=== PATIENT | female | born 1945 | race Caucasian/White ===

== ENCOUNTER 2020-11-17 05:57 | Inpatient (IN) | payer OTHER ==
--- NOTE | 2020-11-05 12:17 | RAD REPORT ---
EXAM DESCRIPTION: RAD - Chest Pa And Lat (2 Views) - 11/05/2020 12:10 pm CLINICAL HISTORY: Pre Op COMPARISON: No comparisons FINDINGS: Lines: None. Lungs: No evidence of edema or pneumonia. Large lung volumes. Pleural: No significant pleural effusions or pneumothorax. Cardiac: Upper limits of normal in size. Annuloplasty changes at the aortic valve. Bones: No acute fractures. Sternotomy. Other: IMPRESSION: No acute cardiopulmonary disease.
[2020-11-05 13:03] LABS: Urine Appearance CLEAR (Clear); Urine Bilirubin NEGATIVE (Negative); Urine Blood TRACE (Negative); Urine Color YELLOW (Yellow); Urine Glucose NEGATIVE (Negative); Urine Protein NEGATIVE (Negative); Urine Urobilinogen 0.2 mg/dL (0.2-1.0)
[2020-11-05 13:08] LABS: Urine Microscopic Reflex ORDER UMIC
[2020-11-05 13:11] LABS: Absolute Lymphocytes (CBC) 1.1 K/uL (0.7-4.9); Basophils % 1.9 % (0-1.3); Hematocrit 44.2 % (36.0-45.0); Lymphocytes % 27.2 % (15.3-44.8); MPV 9.6 fL (7.6-11.3); RBC Red Blood Cell Count 4.59 M/uL (3.86-4.86)
[2020-11-05 13:15] LABS: Protime INR 1.08
[2020-11-05 13:15] LABS: Urine Bacteria <20 /HPF (<20)
[2020-11-05 13:40] LABS: Albumin 4.1 g/dL (3.4-5.0); Bilirubin Total 0.7 mg/dL (0.2-1.0); Potassium 4.2 mmol/L (3.5-5.1); Protein, Total 7.3 g/dL (6.4-8.2)
--- NOTE | 2020-11-09 18:19 | EKG ---
Test Date: 2020-11-05 Test Time: 11:23:08 Cementing Bulk Material Operator: KAREEM MEASUREMENT RESULTS: Intervals: Rate: 82 CT: QRSD: 86 QT: 390 QTc: 455 Tok: P: CT: QRS: 85 T: 46 INTERPRETIVE STATEMENTS: Atrial fibrillation Abnormal ECG No previous ECG available for comparison Electronically Signed On 11-09-20 18:07:03 CDT by Laureano Mccormick
--- NOTE | 2020-11-10 16:48 | EKG ---
Test Date: 2020-11-05 Test Time: 11:29:47 Electroneurodiagnostic Technologist: KAREEM MEASUREMENT RESULTS: Intervals: Rate: 79 HI: QRSD: 88 QT: 398 QTc: 456 Arnett: P: HI: QRS: 85 T: 34 INTERPRETIVE STATEMENTS: Atrial fibrillation Minimal voltage criteria for LVH, may be normal variant Abnormal ECG Compared to ECG 11/05/2020 11:23:08 Left ventricular hypertrophy now present Electronically Signed On 11-10-20 16:43:16 CDT by Laureano Mccormick
[2020-11-17] MEDS ORDERED: CELECOXIB 100 MG CAPSULE ONE (06:51)
[2020-11-17] MEDS ORDERED: GABAPENTIN 100 MG CAP ONE (06:52)
[2020-11-17] MEDS ORDERED: CEFAZOLIN 2 GM IN 0.9% NACL 2 GM/100 ML BAG ONE (06:52)
[2020-11-17] MEDS ORDERED: Ringers Lactate 1,000 ML IV ONE ×2 (06:52→08:39)
[2020-11-17] MEDS ORDERED: ACETAMINOPHEN 500 MG TAB ONE (06:52)
[2020-11-17] MEDS ORDERED: TRANEXAMIC ACID 1,000 MG in NA CHLORIDE 0.9% 50 ML IV SCH (07:15)
[2020-11-17] MEDS ORDERED: MIDAZOLAM HCL 2 MG/2 ML INJ ONE (07:24)
[2020-11-17] MEDS ORDERED: FENTANYL CITR 100 MCG/2 ML ONE (07:24)
[2020-11-17] MEDS ORDERED: LIDOCAINE 2% MPF 5 ML VIAL ONE (07:24)
[2020-11-17] MEDS ORDERED: propofoL 200 MG/20 ML VIAL IV ONE (07:24)
[2020-11-17] MEDS ORDERED: EPINEPHRINE/PF 1 MG/ML AMP ONE (07:30)
[2020-11-17] MEDS ORDERED: BUPIVACAINE 0.75% (PF) 2 ML SP ONE (07:30)
[2020-11-17] MEDS ORDERED: LIDOCAINE 1% MPF 2 ML AMPULE ONE (07:39)
[2020-11-17] MEDS ORDERED: EPHEDRINE SULF 50 MG/ML VIAL ONE (08:14)
[2020-11-17] MEDS ORDERED: ESMOLOL HCL 10 ML IV ONE (08:37)
[2020-11-17] MEDS ORDERED: Phenylephrine HCl 10 MG/ML 1 ML VIAL ONE (08:46)
[2020-11-17] MEDS ORDERED: ONDANSETRON 4 MG/2 ML VIAL IV PRN (09:31)
[2020-11-17] MEDS ORDERED: DOCUSATE NA 100 MG CAP PO PRN (09:31)
[2020-11-17] MEDS ORDERED: NALOXONE 0.4 MG/ML VIAL IV PRN (09:31)
[2020-11-17] MEDS ORDERED: MORPHINE/NS PCA 50 MG/50 ML PCA.SYRING IV PRN (09:31)
--- NOTE | 2020-11-17 09:31 | P.BOP ---
Preoperative diagnosis: left hip arthritis Postoperative diagnosis: same Primary procedure: left hip total hip arthoplasty Estimated blood loss: 100ccs Anesthesia: General Complications: None Transferred to: Recovery Room Condition: Good
[2020-11-17 10:04] LABS: Hematocrit 36.7 % (36.0-45.0)
[2020-11-17 11:05] VITALS: BMI 16.0
--- NOTE | 2020-11-17 12:40 | P.HP ---
Patient History Date of Service: 11/17/20 Allergies No Known Allergies Allergy (Verified 11/17/20 07:06) Home Medications: Albuterol Sulfate [Proair Respiclick] 90 mcg IH BID 11/05/20 Aspirin [Aspirin EC 81 MG] 81 mg PO DAILY 11/05/20 Biotin 1 mg PO DAILY 11/05/20 Ca Citrate/Mgox/Vit D3/B6/Min [Citracal Plus Tablet] 1 each PO DAILY 11/05/20 Cholecalciferol (Vitamin D3) [Vitamin D 5,000 Iu Cap] 5,000 unit PO DAILY 11/05/20 Meloxicam [Mobic] 7.5 mg PO DAILY 11/05/20 Potassium Cl [Klor-Con 8] 8 meq PO DAILY 11/05/20 Tramadol HCl/Acetaminophen [Ultracet Tablet] 1 each PO Q6HP PRN 11/05/20 Umeclidinium Brm/Vilanterol Tr [Anoro Ellipta 62.5-25 Mcg INH] 1 each IH DAILY 11/05/20 - Past Medical/Surgical History Has patient received pneumonia vaccine in the past: No Diabetic: No -: appendectomy - Social History Smoking Status: Current some day smoker Alcohol use: Yes CD- Drugs: No Caffeine use: Yes Place of Residence: Home Physical Examination - Vital Signs Temperature: 96.9 F Blood Pressure: 97/73 Pulse: 98 Respirations: 18 Pulse Ox (%): 95 - Studies Laboratory Data (last 24 hrs) 11/17/20 09:55: Hgb 12.5, Hct 36.7 D Assessment and Plan - Advance Directives Does patient have a Living Will: No Does patient have a Durable POA for Healthcare: Yes
--- NOTE | 2020-11-17 12:47 | P.CNS ---
Date of Consult: 11/17/20 Reason for Consult: Medical management Chief Complaint: Left Hip replacement History of Present Illness: Patient is a 75-year-old female with a past medical history significant for COPD, nicotine dependence, A. fib and osteoarthritis who was scheduled to have surgery with her orthopedic surgeon due to persistent left hip pain. Patient has a left hip replacement. Patient tolerated the procedure appropriately. [facility] was consulted for medical management. Patient currently denies any signs and symptoms of distress. Patient denies pain or any other symptoms. Symptoms are aggravated or relieved by nothing. Patient is currently resting in bed with abduction pillow in place. - Past Medical/Surgical History Diabetic: No -: Afib -: COPD -: appendectomy -: Right Hip repalcement - Social History Smoking Status: Current every day smoker Smoking therapy provided: Yes Alcohol use: Yes CD- Drugs: No Caffeine use: Yes Place of Residence: Home <Allyson Canales - Last Filed: 11/17/20 20:11> <Stan Collado - Last Filed: 11/18/20 06:08> Allergies No Known Allergies Allergy (Verified 11/17/20 07:06) Home Medications: Albuterol Sulfate [Proair Respiclick] 90 mcg IH BID 11/05/20 Aspirin [Aspirin EC 81 MG] 81 mg PO DAILY 11/05/20 Biotin 1 mg PO DAILY 11/05/20 Ca Citrate/Mgox/Vit D3/B6/Min [Citracal Plus Tablet] 1 each PO DAILY 11/05/20 Cholecalciferol (Vitamin D3) [Vitamin D 5,000 Iu Cap] 5,000 unit PO DAILY 11/05/20 Meloxicam [Mobic] 7.5 mg PO DAILY 11/05/20 Potassium Cl [Klor-Con 8] 8 meq PO DAILY 11/05/20 Tramadol HCl/Acetaminophen [Ultracet Tablet] 1 each PO Q6HP PRN 11/05/20 Umeclidinium Brm/Vilanterol Tr [Anoro Ellipta 62.5-25 Mcg INH] 1 each IH DAILY 11/05/20 Review of Systems General: Other, Unremarkable Eyes: Unremarkable ENT: Unremarkable Respiratory: Unremarkable Cardiovascular: Unremarkable Gastrointestinal: Unremarkable Genitourinary: Unremarkable Musculoskeletal: Other (Left hip pain ) Integumentary: Unremarkable Neurological: Unremarkable <Allyson Canales - Last Filed: 11/17/20 20:11> Physical Examination Temp Pulse Resp BP Pulse Ox 96.9 F 98 H 18 97/73 95 11/17/20 11:50 11/17/20 11:50 11/17/20 11:50 11/17/20 11:50 11/17/20 11:50 General: Alert, In no apparent distress, Oriented x3 HEENT: Atraumatic, PERRLA, Mucous membr. moist/pink, EOMI, Sclerae nonicteric Neck: Supple, 2+ carotid pulse no bruit, No LAD, Without JVD or thyroid abnormality Respiratory: Clear to auscultation bilaterally, Normal air movement Cardiovascular: Normal S1 S2, Irregular heart rate/rhythm Capillary refill: <2 Seconds Gastrointestinal: Normal bowel sounds, No tenderness Musculoskeletal: No tenderness Integumentary: No rashes Neurological: Normal gait, Normal speech, Normal tone, Normal affect Lymphatics: No axilla or inguinal lymphadenopathy External genitalia: Deferred Rectal: Deferred Laboratory Data (last 24 hrs) 11/17/20 09:55: Hgb 12.5, Hct 36.7 D <YunierannakamaljitAllyson montoya Chacho - Last Filed: 11/17/20 20:11> Temp Pulse Resp BP Pulse Ox 98.1 F 103 H 20 95/59 L 97 11/18/20 04:00 11/18/20 05:13 11/18/20 04:00 11/18/20 05:13 11/18/20 04:00 Laboratory Data (last 24 hrs) 11/18/20 05:18: WBC 4.70 D, Hgb 10.2 L, Hct 30.1 L, Plt Count 115 L 11/17/20 16:53: Hgb 11.8 L, Hct 35.1 L 11/17/20 09:55: Hgb 12.5, Hct 36.7 D <Stan Collado - Last Filed: 11/18/20 06:08> Conclusions/Impression: --Left hip pain. Status post left hip replacement. Surgery on board. Abducti on pillow in place. Fall precautions. PT eval and treat. Social service consulted as well. Will await further recommendation from surgeon. --Acute pain\osteoarthritis. We will manage pain with current pain medication regimen. --Atrial fibrillation. Patient newly diagnosed 1 week ago. Per surgery recommendation, patient will be placed on Lovenox subQ during this hospitalization and continue Eliquis at home on discharge. --COPD. Stable. Continue home medications. --Nicotine dependence. Patient counseled on tobacco cessation. Refuses nicotine patch. --CKD 2. Baseline functions unknown. We will continue to monitor renal functions. --DVT prophylaxis with Lovenox subQ I have had discussion about advanced directives with the patient during this hospital admission. Addressed code status and goals of care. Spent more than 30 minutes. Case discussed withpatient and nurse. The following document was completed using voice recognition software. This can produce heel reducer errors that can at times significantly distort words and phrases. Please interpret any aspect of the note that is nonsensical in light of this fact. Physician Review: Patient Assessed, Agree with Above Assessment and Plan Critical Care: No <Allyson Canales - Last Filed: 11/17/20 20:11> Conclusions/Impression: Patient seen/examined post-operatively on 11/17. Resting comfortably in bed, irregular rhythm, HR: 90s, breathing comfortably on room air. NAD. AOx3 agree with plan as noted above. PT consulted. patient lives at home with recently diagnosed with afib, started on Eliquis by her inside tester 1-2 weeks ago, denies any prescriptions for rate or rhythm control medication Time Spent Managing Pts care (In Minutes): 60 <Stan Collado - Last Filed: 11/18/20 06:08>
[2020-11-17] MEDS ORDERED: TRAMADOL 37.5mg/APAP 325mg PER TAB PO PRN (12:48)
[2020-11-17] MEDS: HYDROCODONE/APAP 7.5/325 MG TAB PO PRN (16:04)
[2020-11-17] MEDS: CEFAZOLIN 2 GM IN 0.9% NACL 2 GM/100 ML BAG IVPB SCH (16:42)
[2020-11-17 17:15] LABS: Hematocrit 35.1 % (36.0-45.0)
--- NOTE | 2020-11-17 17:56 | OP ---
Date of Procedure: 11/17/2020 Surgeon: Kaleb Wheeler MD Preoperative Diagnosis: Left severe hip arthritis. Postoperative Diagnosis: Left severe hip arthritis. Procedure: Left total hip arthroplasty using the [place] system. Estimated Blood Loss: 100 mL. Complications: There were no complications. Specimen: No pathology specimen sent. Indication For Operation: Ms. Vega is a 75-year-old female, who unfortunately has debilitating ramin n with the left hip. She was seen and examined in my office where she was found to have decreased ra nge of motion as well as pain related to her left hip, which was causing significant pain and problem s. She has had a previous right-sided hip done by me and risks, benefits, and alternatives to total hip arthroplasty have been discussed with the patient. She states she understands things as presente d and wished to proceed. Description Of Procedure: The patient was taken to the operating room and placed in supine position. General anesthesia was obtained by the staff. Following this, she was then rolled right side down with an axillary roll with bony prominences being checked by Anesthesia. She was in an appropriate p osition using hip positioners. After this, the left lower extremity was then prepped and draped in u sual sterile fashion for arthroplasty. This was followed by standard posterolateral incision and was taken down carefully through skin. Only meticulous hemostasis being maintained using Bovie electroca utery. This leads down to the fascia. A small stab wound was made in the fascia. It was brought up to near the tip of the greater trochanter where the gluteus deepthi muscles were encountered and the n curved gently backward. The sciatic nerve was palpated and actually visualized at this point being unusually superficial to the external rotators. The Charnley was then placed and great care was derrick en to protect the sciatic nerve throughout the remainder of the case. The external rotators and caps ule were then taken down carefully and tagged for later repair along with the capsule. The hip was t hen dislocated and cut in standard fashion. The labrum of the hip was then removed and all soft tiss ues of the acetabular were removed. This was then sequentially reamed up to a size 48, possibly coul d have a placed a slightly larger cup, however, only had surrounding bleeding cancellous bone and pos sibly over-reamed, therefore decision was made to stop here. A size 48 was then placed in appropriat e position and placed using standard technique. It appeared to be extremely stable to finger pressur e and not mobile. The attention was then turned to the femur. A box annealer was then used to lateral ize. It was then sequentially broached up to a size 6. The x-ray machine was brought in and found t hat the size 6 appeared to fit fairly well. It is possible we could get a 7; however, given the weak ness of her bone, decision was made to maintain this. The acetabulum itself looked fairly good and d ecision was made to proceed with these implants. The broach was then removed. The wound was copious ly irrigated. The acetabulum was then placed. A size 6 stem was then placed to appropriate depth. It was then trialed with the neutral. The neutral appeared to be doing quite well and may have a sli ght amount of Shuck. It is definitely stable to full flexion, adduction, and internal rotation. Dec ision was made to increase this to a +3. A +3 was then placed. It was also fairly easily not too lo ng, having good range of motion of the hip; however, it bring up to full flexion to 90 degrees, full adduction, and internal rotation to at least 45 degrees before any sign of dislocation. This was the n removed. The final ball was then tapped in place. It was then relocated and again checked the abo ve areas. The wound was again irrigated, and the capsule and external rotators were then repaired ba ck to the trochanter via bone tunnels. This was followed by irrigation and closure of the fascia usi ng heavy Vicryl sutures, followed by irrigation and closure of skin using Vicryl and lefty. The pa tient was then placed in Aquacel dressing, awakened, taken to the recovery room in good condition. T here were no complications. SE/MODL Voice ID: [id number] Report ID: [id number]
[2020-11-17] MEDS: Albuterol Sulfate [Proair Respiclick] 90 MCG Aer.Pow.Ba IH SCH (21:00)
[2020-11-18] MEDS: CEFAZOLIN 2 GM IN 0.9% NACL 2 GM/100 ML BAG IVPB SCH ×2 (00:58→09:52)
[2020-11-18 05:43] LABS: Absolute Lymphocytes (CBC) 0.9 K/uL (0.7-4.9); Basophils % 1.2 % (0-1.3); Hematocrit 30.1 % (36.0-45.0); Lymphocytes % 18.7 % (15.3-44.8); MPV 9.4 fL (7.6-11.3); RBC Red Blood Cell Count 3.14 M/uL (3.86-4.86)
[2020-11-18] MEDS ORDERED: INFLUENZA VACCINE (for 6+ mo) 0.5 ML DOSE IMVAC ONE (06:00)
[2020-11-18 06:07] LABS: Potassium 4.3 mmol/L (3.5-5.1)
--- NOTE | 2020-11-18 06:09 | P.PN ---
Date of Service: 11/18/20 Subjective: Patient states overall she feels better, still with moderate pain, trying to avoid pain medication States she is embarrassed that she did not do well with physical therapy today Has multiple concerns regarding her own health and family members health. She is unsure if she will want to go home versus SNF Physical therapy this morning concerned with patient's mobility, recommended SNF ROS: 10 point review of systems otherwise negative Physical exam GEN: Alert, oriented, NAD HEENT: Normal conjunctiva, sclera anicteric CV: Irregular rhythm/rate, HR: [id number], no edema Pulm: Nonlabored respiration on room air ABD: Soft, nontender, nondistended MSK: Mild left hip discomfort, wiggles toes Integumentary: Surgical dressing clean/dry/intact Neuro: Normal speech, normal affect Problem list Left hip pain s/p left hip replacement Paroxysmal atrial fibrillation, recent diagnosis COPD, chronic Nicotine dependence CKD 2 Orthopedic surgery following, physical therapy working with patient Concern patient's limited mobility and pain control to go home. PT recommends SNF Patient is unsure, states she has pets to take care of, her mother is sick and she has to watch over her bills and other things Continue pain control per Ortho surgery Patient to restart her Eliquis upon discharge home, discussed with Ortho Atrial fibrillation, more tachycardic this morning, with pain and adaptive physical education specialist apy. Patient denies any beta-shay or rhythm control agent Nursing staff reported this morning discovery the patient has been prescribed metoprolol XR 50 mg Patient with low blood pressure, will give small fluid bolus, followed by low- dose metoprolol and reevaluate Cardiology consulted, Betty fib recently diagnosed and started to be treated approximately 1 week ago VTE: lovenox Code: full Dispo: anticipate dc in 1-2 days, possibly SNF Time Spent Managing Pts Care (In Minutes): 35
[2020-11-18] MEDS ORDERED: VIT D3 PO SCH (09:00)
[2020-11-18] MEDS ORDERED: B6 PO SCH (09:00)
[2020-11-18] MEDS: POTASSIUM 8 MEQ PO SCH (09:00)
[2020-11-18] MEDS ORDERED: MELOXICAM 7.5 MG TAB PO SCH (09:00)
[2020-11-18] MEDS: Umeclidinium Brm/Vilanterol Tr [Anoro Ellipta 62.5-25 Mcg Inh] Blst.W.D IH SCH (09:00)
[2020-11-18] MEDS ORDERED: HOME MED 1 EA UNK (Biotin [Biotin] 1 MG Capsule) PO SCH (09:00)
[2020-11-18] MEDS: Albuterol Sulfate [Proair Respiclick] 90 MCG Aer.Pow.Ba IH SCH ×2 (09:00→20:07)
[2020-11-18] MEDS ORDERED: [UNRECOGNIZED DRUG - OTHER] PO SCH (09:00)
[2020-11-18] MEDS ORDERED: CA CITRATE PO SCH (09:00)
[2020-11-18] MEDS ORDERED: POTASSIUM CL 8 MEQ SA TAB PO SCH (09:00)
[2020-11-18] MEDS ORDERED: POTASSIUM 8 MEQ PO SCH (09:00)
[2020-11-18] MEDS ORDERED: MGOX PO SCH (09:00)
[2020-11-18] MEDS: VITAMIN D 5,000 UNIT CAP PO SCH (09:51)
[2020-11-18] MEDS: HYDROCODONE/APAP 7.5/325 MG TAB PO PRN (09:52)
[2020-11-18] MEDS: ENOXAPARIN 40 MG/0.4 ML SQ SCH (09:55)
--- NOTE | 2020-11-18 10:19 | RAD REPORT ---
EXAM DESCRIPTION: RAD - Hip Left 1 View - 11/17/2020 9:00 am CLINICAL HISTORY: TOTAL HIP LT HARDWEAR PLACEMENT COMPARISON: No comparisons IMPRESSION: Single intraoperative fluoroscopic image demonstrating a left hip arthroplasty. No evide nce of immediate hardware complications. Status post right total hip arthroplasty.
[2020-11-18] MEDS ORDERED: NA CHLORIDE 0.9% 500 ML IV ONE (11:55)
[2020-11-18] MEDS ORDERED: METOPROLOL TAR 25 MG TAB PO ONE (12:00)
[2020-11-18] MEDS: NA CHLORIDE 0.9% 1,000 ML IV SCH (14:36)
[2020-11-18] MEDS ORDERED: NA CHLORIDE 0.9% 1,000 ML ONE (14:57)
--- NOTE | 2020-11-18 20:26 | CON ---
Date of Consultation: 11/18/2020 Reason For Consultation: Atrial fibrillation. History Of Present Illness: This is a 75-year-old female with history of COPD and atrial fibrillatio n, who had a hip replacement. She is having a rapid ventricular response with atrial fibrillation. She is known to have history of atrial fibrillation and COPD. Denies having any chest pain or shortn ess of breath. Past Medical History: Atrial fibrillation, COPD. Medications: Refer reconciliation sheet for detailed list. Allergies: NO KNOWN DRUG ALLERGIES. Family History: No premature coronary artery disease or cancer. Social History: Smokes a pack per day. Does not drink as she has stopped about 2 days ago as per re port. Does not drink. Does not use any drugs. Review of Systems: All systems reviewed and they were negative except as mentioned in the HPI. Physical Examination: Vital Signs: Reviewed. Blood pressure is borderline low. Head and Neck: Pupils are equal, reactive to light. Intact eye movements. No JVD. No cervical lym phadenopathy. Neck is supple. Thyroid is not enlarged. Lungs: Clear with decreased breathing sounds. No accessory muscle use or muscle retraction. Heart: Irregularly irregular. No extra sounds. Abdomen: Soft and nontender. Bowel sounds positive. No organomegaly. No masses or hernia. No rig idity or rebound. Extremities: No clubbing or cyanosis. Intact pulses. Skin: No rashes. Neurologic: Alert, awake, and oriented x3. No acute focal deficits appreciated. Investigations: Labs were reviewed. Assessment And Recommendation: Atrial fibrillation with rapid ventricular response. If the blood pr essure continues to run low and the patient cannot take AV cherelle blocking agents, recommend to start her on amiodarone drip 150 mg over 10 minutes and then 1 mg/minutes for 6 hours and then 0.5 mg/minut e for 16 hours and then switch to oral after that. Recommend anticoagulation with Eliquis 5 mg twice a day. Thank you for the consult. /KOBY Voice ID: [id number] Report ID: [id number]
[2020-11-19] MEDS: HYDROCODONE/APAP 7.5/325 MG TAB PO PRN (01:38)
--- NOTE | 2020-11-19 04:16 | DS ---
The patient is seen today. She is neurovascularly intact. Her incision is clean, dry, and intact. Her heels are nontender. She has been up with physical therapy, but only walk very short distances b ecause of complaints of pain. On questioning her, she says that she does not like to take pain medic ine, but 1 day after total hip arthroplasty, perhaps she should do that so that she can participate b jovani in therapy. We would normally send her home today, but the hospitalist is concerned about her atrial fibrillation and lack of endurance. Also Physical Therapy obviously has not cleared her for h ome. At this point, I think therapy is going to come back and work with her. She is going to take m ore pain relieving medications, and hopefully, she will be able to participate more fully. The plan at this point is probably to discharge her tomorrow. She will, otherwise, continue her Lovenox. /KOBY Voice ID: [id number] Report ID: [id number]
[2020-11-19] MEDS ORDERED: HALOPERIDOL LACT 5 MG/ML INJ IV PRN (05:36)
--- NOTE | 2020-11-19 05:57 | P.PN ---
Date of Service: 11/19/20 Subjective: nursing reports patient with some confusion overnight. better this morning. AAOx3 patient reports lots of stress at home mobility and pain control has improved. afib with HR: 100-120s. Related to pain. improved with metoprolol. blood pressure low-normal, given small bolus with improvement patient wanting to go home, refuses SNF, refuses telemetry ROS: 10 point review of systems otherwise negative Physical exam GEN: Alert, oriented, NAD HEENT: Normal conjunctiva, sclera anicteric CV: Irregular rhythm/rate, HR:90-110, no edema Pulm: Nonlabored respiration on room air ABD: Soft, nontender, nondistended MSK: Mild left hip discomfort, wiggles toes Integumentary: Surgical dressing clean/dry/intact Neuro: Normal speech, normal affect Problem list Left hip pain s/p left hip replacement Paroxysmal atrial fibrillation, recent diagnosis COPD, chronic Nicotine dependence CKD 2 Orthopedic surgery following, physical therapy working with patient improved, confusion likely from mild delirium after surgery/anesthesia and pain medication heart rate improved, remains in afib ok to resume home metoprolol and eliquis on discharge Continue pain control per Ortho surgery to follow up with manager primary in next week or two follow up with PCP in 3-5 days stable to discharge home when ok by ortho / PT Time Spent Managing Pts Care (In Minutes): 30
[2020-11-19 06:28] LABS: Absolute Lymphocytes (CBC) 1.2 K/uL (0.7-4.9); Hematocrit 31.5 % (36.0-45.0); Lymphocytes % 16.8 % (15.3-44.8); MPV 9.2 fL (7.6-11.3); RBC Red Blood Cell Count 3.27 M/uL (3.86-4.86)
[2020-11-19] MEDS: POTASSIUM 8 MEQ PO SCH (08:34)
[2020-11-19] MEDS: Albuterol Sulfate [Proair Respiclick] 90 MCG Aer.Pow.Ba IH SCH (08:35)
[2020-11-19] MEDS: VITAMIN D 5,000 UNIT CAP PO SCH (08:35)
[2020-11-19] MEDS: ENOXAPARIN 40 MG/0.4 ML SQ SCH (08:35)
[2020-11-19] MEDS: Umeclidinium Brm/Vilanterol Tr [Anoro Ellipta 62.5-25 Mcg Inh] Blst.W.D IH SCH (08:35)
[2020-11-19] MEDS: NA CHLORIDE 0.9% 1,000 ML IV SCH (11:00)
[2020-11-19 11:58] VITALS: O2SAT 98
[2020-11-19 12:07] VITALS: BP 106/55; TEMP 98.3
== END 2020-11-19 13:45 | disposition home health service (06) | DRG 470 ==
LOC: OR 05:57 → 2ND 10:08 → OBSVTOIN 11-19 12:53
PROVIDERS: ADMIT Orthopaedic Surgery; ATTEND Orthopaedic Surgery
PROC: 0SRB0JZ Replacement of Left Hip Joint with Synthetic Substitute, Open Approach (ICD-10-PCS; principal; 2020-11-17 07:30)
DX: M13.852 Other specified arthritis, left hip (principal); I48.0 Paroxysmal atrial fibrillation; N18.2 Chronic kidney disease, stage 2 (mild); J44.9 Chronic obstructive pulmonary disease, unspecified; F17.200 Nicotine dependence, unspecified, uncomplicated; R00.0 Tachycardia, unspecified; Z90.49 Acquired absence of other specified parts of digestive tract; Z79.82 Long term (current) use of aspirin; Z79.899 Other long term (current) drug therapy; Z79.01 Long term (current) use of anticoagulants; Z20.822 Contact with and (suspected) exposure to COVID-19
CPT/HCPCS: 36415; 71046; 80048; 80053; 80061; 81003; 81015; 83036; 85014; 85018; 85025; 85610; 85730; 86850; 86900; 86901; 88304; 88305; 88311; 93005; 97110; 97116; 97161; 97530; G0378; G0379; J0171; J0690; J1630; J1650; J2250; J2370; J2704; J3010; J7030; J7040; J7120; U0002; U0003

== ENCOUNTER 2021-01-11 14:00 | Emergency (ER) | payer OTHER ==
--- OUTSIDE RECORDS SUMMARY | 2021-01-11 14:03 | XMS REPORT | Continuity of Care Document ---
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 0-13 ity of [place] 00 Medica l Branch Pain Pain Disease Active 2016-02 Univers 0-11 ity of 00:00: [place] 00 Medical Branch Unspecifie 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 Social History Social Habit Start Date Stop Date Quantity Comments Source History SDOH University o f Alcohol Frequency [place] [facility] History SDMO University o f Alcohol Std Drinks [place] [facility] History SDMO University o f Alcohol Binge [place] [facility] Exposure to Not sure University of SARS-CoV-2 (event) [facility] History of tobacco Cigarette Smoker University of use [facility] Alcohol intake 2020-12-29 2020-12-29 Current drinker Unive rsity of 00:00:00 00:00:00 of alcohol [place] [facility] (finding) [place] Tobacco use and 2016-11-14 2016-11-14 Never used Universit y of exposure 00:00:00 00:00:00 [facility] Alcohol Comment 2016-11-14 2016-11-14 Approx. 1-2 Universi ty of 00:00:00 00:00:00 glasses of wine [place] [facility] ical approx. 5X/week Branch Cigarettes smoked 2016-11-14 2016-11-14 Univers ity of current (pack per 00:00:00 00:00:00 [place] ) - Reported Branch Cigarette 2016-11-14 2016-11-14 University of pack-years 00:00:00 00:00:00 [facility] Sex Ass[birth year] At [birth year] Universit y of 00:00:00 00:00:00 [facility] Smoking Status Start Date Stop Date Source Current every day smoker 2016-11-14 00:00:00 Uni versity of [facility] Medications Ordered Filled Start Stop Current Ordering Indication Dosage Frequency Signature Comments Components Source Medication Medication Date Date Medication? Clinician (SIG) Name Name POTASSIUM 2020-02 Yes 1{tbl} Take 1 Univ ers &MAGNESIUM 1-24 tablet by ity of ASPARTATE 14:00: mouth [place] (POTASSIUM 30 daily. Medical & MAGNESIUM Branch ASPARTAT ORAL) cholecalcif 2020-02 Yes 1000U Take 1,000 Univers lee, 1-24 Units by ity of vitamin D3, 14:00: mouth [place] (VITAMIN 30 daily. Medical D3) 1,000 Branch unit tablet calcium 2020-02 Yes 1{tbl} Take 1 Univer s carb and 1-24 tablet by ity of citrate-vit 14:00: mouth [place] D3 30 daily. Medical (CITRACAL + Branch D SLOW RELEASE) 600 mg calcium- 500 unit TbSR POTASSIUM 2020-02 Yes 1{tbl} Take 1 Univ ers &MAGNESIUM 1-24 tablet by ity of ASPARTATE 14:00: mouth [place] (POTASSIUM 30 daily. Medical & MAGNESIUM Branch ASPARTAT ORAL) cholecalcif 2020-02 Yes 1000U Take 1,000 Univers lee, 1-24 Units by ity of vitamin D3, 14:00: mouth [place] (VITAMIN 30 daily. Medical D3) 1,000 Branch unit tablet calcium 2020-02 Yes 1{tbl} Take 1 Univer s carb and 1-24 tablet by ity of citrate-vit 14:00: mouth [place] D3 30 daily. Medical (CITRACAL + Branch D SLOW RELEASE) 600 mg calcium- 500 unit TbSR POTASSIUM 2016-02 Yes 1{tbl} Take 1 Univ ers &MAGNESIUM 0-14 tablet by ity of ASPARTATE 11:28: mouth [place] (POTASSIUM 24 daily. Medical & MAGNESIUM Branch ASPARTAT ORAL) cholecalcif 2016-02 Yes 1000U Take 1,000 Univers lee, 0-14 Units by ity of vitamin D3, 11:28: mouth [place] (VITAMIN 24 daily. Medical D3) 1,000 Branch unit tablet calcium 2016-02 Yes 1{tbl} Take 1 Univer s carb and 0-14 tablet by ity of citrate-vit 11:28: mouth [place] D3 24 daily. Medical (CITRACAL + Branch D SLOW RELEASE) 600 mg calcium- 500 unit TbSR POTASSIUM 2016-02 Yes 1{tbl} Take 1 Univ ers &MAGNESIUM 0-14 tablet by ity of ASPARTATE 11:28: mouth [place] (POTASSIUM 24 daily. Medical & MAGNESIUM Branch ASPARTAT ORAL) cholecalcif 2016-02 Yes 1000U Take 1,000 Univers lee, 0-14 Units by ity of vitamin D3, 11:28: mouth [place] (VITAMIN 24 daily. Medical D3) 1,000 Branch unit tablet calcium 2016-02 Yes 1{tbl} Take 1 Univer s carb and 0-14 tablet by ity of citrate-vit 11:28: mouth [place] D3 24 daily. Medical (CITRACAL + Branch D SLOW RELEASE) 600 mg calcium- 500 unit TbSR ANORO Yes 1{puff} Inhale 1 Unive rs ELLIPTA 9-25 Puff ity of 62.5-25 00:00: daily. [place] mcg/actuati 00 Medical on Branch inhalation disk ANORO Yes 1{puff} Inhale 1 Unive rs ELLIPTA 9-25 Puff ity of 62.5-25 00:00: daily. [place] mcg/actuati 00 Medical on Branch inhalation disk ANORO Yes 1{puff} Inhale 1 Unive rs ELLIPTA 9-25 Puff ity of 62.5-25 00:00: daily. [place] mcg/actuati 00 Medical on Branch inhalation disk ANORO Yes 1{puff} Inhale 1 Unive rs ELLIPTA 9-25 Puff ity of 62.5-25 00:00: daily. [place] mcg/actuati 00 Medical on Branch inhalation disk tramadol-ac Yes 1{tbl} Take 1 Un luis armando etaminophen 9-21 tablet by ity of 37.5-325 mg 00:00: mouth [place] per tablet 00 every 6 Medica l (six) Branch hours as needed. Does not take tramadol-ac Yes 1{tbl} Take 1 Un luis armando etaminophen 9-21 tablet by ity of 37.5-325 mg 00:00: mouth [place] per tablet 00 every 6 Medica l (six) Branch hours as needed. Does not take tramadol-ac Yes 1{tbl} Take 1 Un luis armando etaminophen 9-21 tablet by ity of 37.5-325 mg 00:00: mouth [place] per tablet 00 every 6 Medica l (six) Branch hours as needed. Does not take tramadol-ac Yes 1{tbl} Take 1 Un luis armando etaminophen 9-21 tablet by ity of 37.5-325 mg 00:00: mouth [place] per tablet 00 every 6 Medica l (six) Branch hours as needed. Does not take PROAIR Yes 1{puff} Inhale 1 Univ ers RESPICLICK 9-15 Puff 2 ity of 90 00:00: (two) [place] mcg/actuati 00 times Medical on AePB daily. Branch PROAIR Yes 1{puff} Inhale 1 Univ ers RESPICLICK 9-15 Puff 2 ity of 90 00:00: (two) [place] mcg/actuati 00 times Medical on AePB daily. Branch PROAIR Yes 1{puff} Inhale 1 Univ ers RESPICLICK 9-15 Puff 2 ity of 90 00:00: (two) [place] mcg/actuati 00 times Medical on AePB daily. Branch PROAIR Yes 1{puff} Inhale 1 Univ ers RESPICLICK 9-15 Puff 2 ity of 90 00:00: (two) [place] mcg/actuati 00 times Medical on AePB daily. Branch DULoxetine 2017-0 Yes 30mg Take 30 mg U nivers 30 mg 8-16 by mouth 2 ity of capsule 00:00: (two) [place] 00 times Medical daily. Branch DULoxetine 2017-0 Yes 30mg Take 30 mg U nivers 30 mg 8-16 by mouth 2 ity of capsule 00:00: (two) [place] 00 times Medical daily. Branch DULoxetine 2017-0 Yes 30mg Take 30 mg U nivers 30 mg 8-16 by mouth 2 ity of capsule 00:00: (two) [place] 00 times Medical daily. Branch DULoxetine 2017-0 Yes 30mg Take 30 mg U nivers 30 mg 8-16 by mouth 2 ity of capsule 00:00: (two) [place] 00 times Medical daily. Branch Immunizations Ordered Filled Immunization Date Status Comments [facility] e Immunization Name Name SARS-COV-2 COVID-19 2020-04-10 Completed Unive rsity of MODERNA VACCINE 00:00:00 [facility] SARS-COV-2 COVID-19 2020-04-10 Completed Unive rsity of MODERNA VACCINE 00:00:00 [facility] SARS-COV-2 COVID-19 2020-04-10 Completed Unive rsity of MODERNA VACCINE 00:00:00 [facility] SARS-COV-2 COVID-19 2020-04-10 Completed Unive rsity of MODERNA VACCINE 00:00:00 [facility] SARS-COV-2 COVID-19 2020-03-13 Completed Unive rsity of MODERNA VACCINE 00:00:00 [facility] SARS-COV-2 COVID-19 2020-03-13 Completed Unive rsity of MODERNA VACCINE 00:00:00 [facility] SARS-COV-2 COVID-19 2020-03-13 Completed Unive rsity of MODERNA VACCINE 00:00:00 [facility] SARS-COV-2 COVID-19 2020-03-13 Completed Unive rsity of MODERNA VACCINE 00:00:00 [facility] Vital Signs Vital Name Observation Time Observation Value Comments Source Systolic blood 2020-12-29 19:59:00 126 mm[Hg] Univer sity of pressure [facility] Diastolic blood 2020-12-29 19:59:00 72 mm[Hg] Unive rsity of pressure [facility] Heart rate 2020-12-29 19:59:00 68 /min [facility] Respiratory rate 2020-12-29 19:59:00 16 /min Univ ersity of [facility] Body height 2020-12-29 19:59:00 177.8 cm [facility] Body weight 2020-12-29 19:59:00 56.7 kg [facility] BMI 2020-12-29 19:59:00 17.94 kg/m2 [facility] Oxygen saturation in 2020-12-29 19:59:00 97 /min [facility] Arterial blood by [facility] Pulse oximetry Branch Procedures Procedure Date / Time Performed Performing Clinician Sour e CONSENT/REFUSAL FOR 2020-12-29 19:24:30 Doctor Unassigned, No [facility] Name [facility] TREATMENT REFERRAL- 2020-12-09 05:01:00 Doctor Unassigned, No [facility] REQUEST/RESPONSE Name [facility] Encounters Start End Encounter Admission Attending Care Care Encounter Source Date/Time Date/Time Type Type Clinicians Facility Department ID 2020-12-29 2020-12-29 Office Lb Brannon [facility] [[email or web address]] [id number] Univers 13:26:32 16:35:57 Visit HEALTH [id number] it [id number] [id number] [facility] 203 Branch OFFICE BUILDING 2020-12-29 2020-12-29 Orders Doctor NAVI [id number] Univers 00:00:00 00:00:00 Only Unassigned, ABHINAV [id number] ity of [facility] [id number] [place] [id number] [place] [address] Branch 2020-12-09 2020-12-09 Orders Doctor MCELROY [id number] Univers 00:00:00 00:00:00 Only Unassigned, ABHINAV [id number] ity of [facility] [id number] Ari as [id number] [facility] 009 Branch 2019 2019 Outpatient [facility] [id number] 13:50:00 13:50:00 [facility] 2019-04-17 2019-04-17 Outpatient [facility] [id number] [place] 00:00:00 00:00:00 [address] Results Test Description Test Time Test Comments Results Result Sourc e Comments U/S, DUPLEX, 2017-12-18 Reason for FINAL REPORT DOPPLER, 14:19:00 Exam:->toxic effect PATIENT ID: AORTA/IVC of tobacco [id number] cigarette, INDICATION:72-year- unintentional old female with smoking history. Evaluate for abdominal aortic or iliac artery aneurysm. COMPARISON: None. TECHNIQUE: Ultrasound of the abdominal aorta, with use of color flow and spectral Doppler. FINDINGS:The proximal abdominal aorta measures 2.5 x 1.9 cm.The mid abdominal aorta measures 2.2 x 2.0 cm.The distal abdominal aorta measures 1.7 x 1.5 cm.The right common iliac artery measures 0.6 x 0.6 cm.The left common iliac artery measures 0.7 x 0.7 cm. Normal arterial waveform is demonstrated in the aorta and in the common iliac arteries.Moderate calcified plaque is noted in the distal abdominal aorta. IVC is unremarkable. IMPRESSION:No aneurysm of the abdominal aorta or common iliac arteries. Moderate calcified plaque in the distal abdominal aorta. Signed: Jackie Zaragoza MDReport Verified Date/Time: 12/18/2017 14:19:05 Reading Location: [address] Radiology Reading Room
[2021-01-11 15:39] LABS: Absolute Lymphocytes (CBC) 0.9 K/uL (0.7-4.9); Basophils % 0.9 % (0-1.3); Hematocrit 41.7 % (36.0-45.0); Lymphocytes % 14.3 % (15.3-44.8); MPV 8.3 fL (7.6-11.3); RBC Red Blood Cell Count 4.28 M/uL (3.86-4.86)
--- NOTE | 2021-01-11 15:50 | RAD REPORT ---
EXAM DESCRIPTION: CT - Abdomen Pelvis W Contrast - 01/11/2021 3:39 pm CLINICAL HISTORY: Abdominal pain COMPARISON: none. TECHNIQUE: Computed axial tomography of the abdomen pelvis was obtained. 100 cc Isovue-300 was admin istered intravenously. Oral contrast was not requested which limits evaluation of bowel. All CT scans are performed using dose optimization technique as appropriate and may include automated exposure control or mA/KV adjustment according to patient size. FINDINGS: The heart is enlarged. The IVC and hepatic veins are distended. Liver has a mildly inhomogeneous density. Hepatomegaly Spleen, pancreas, adrenals and kidneys unremarkable There is no evidence of diverticulitis. 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 Small amount of ascites 4.8 centimeter fluid collection within the subcutaneous tissues of the left flank IMPRESSION: Cardiomegaly with distention of the IVC and hepatic veins probably indicating right hear t failure Mildly inhomogeneous hepatic density may indicate passive venous congestion Hepatomegaly 10 centimeter fluid collection within the subcutaneous tissues of the left flank may represent a rela tively old hematoma. This should be correlated clinically
[2021-01-11 16:34] LABS: Albumin 2.8 g/dL (3.4-5.0); Bilirubin Direct 0.1 mg/dL (0-0.2); Bilirubin Total 0.4 mg/dL (0.2-1.0); Protein, Total 6.3 g/dL (6.4-8.2)
[2021-01-11 16:35] LABS: Potassium 3.3 mmol/L (3.5-5.1)
--- NOTE | 2021-01-11 16:54 | ER ---
Nurse's Notes [facility] Name: Katarina Vega Age: 75 yrs Sex: Female : 1945 Arrival Date: 01/11/2021 Time: 14:10 Bed 19 Private MD: Diagnosis: Ventral hernia without obstruction or gangrene;Epigastric abdominal tenderness Presentation: 01/11 14:55 Chief complaint: Patient states: I have been having abdominal pain for about 6 months, ld1 on and off. Pt reports abdominal hernia. Stated, I think it is related to stress. Coronavirus screen: At this time, the client does not indicate any symptoms associated with coronavirus-19. Ebola Screen: No symptoms or risks identified at this time. Initial Sepsis Screen: Does the patient meet any 2 criteria? No. Patient's initial sepsis screen is negative. Does the patient have a suspected source of infection? No. Patient's initial sepsis screen is negative. Risk Assessment: Do you want to hurt yourself or someone else?. Onset of symptoms was January 11, 2021. 14:55 Method Of Arrival: Ambulatory ld1 14:55 Acuity: RAJ 3 ld1 Triage Assessment: 14:40 General: Appears in no apparent distress. comfortable, Behavior is calm, cooperative, ld1 appropriate for age. EENT: No signs and/or symptoms were reported regarding the EENT system. Neuro: Level of Consciousness is awake, alert, obeys commands, Oriented to person, place, time, situation, Appropriate for age. Cardiovascular: Capillary refill < 3 seconds Patient's skin is warm and dry. Respiratory: Airway is patent Respiratory effort is even, unlabored, Respiratory pattern is regular, symmetrical. GI: Abdomen is round non-distended, Abd is soft Abdomen is tender to palpation in epigastric area and left upper quadrant Reports upper abdominal pain, epigastric pain. : No signs and/or symptoms were reported regarding the genitourinary system. Derm: No signs and/or symptoms reported regarding the dermatologic system. Musculoskeletal: No signs and/or symptoms reported regarding the musculoskeletal system. 15:00 Pain: Complains of pain in abdomen Pain does not radiate. Pain currently is 5 out of 10 ld1 on a pain scale. Quality of pain is described as Pain began suddenly, Is continuous. Historical: - Allergies: 15:00 No Known Allergies; ld1 - PMHx: 15:00 None; ld1 - PSHx: 15:00 Left hip replacement; ld1 - Immunization history:: Adult Immunizations up to date, Client reports receiving the 2nd dose of the Covid vaccine. - Social history:: Smoking status: Patient denies any tobacco usage or history of. Patient/guardian denies using alcohol. Screenin:43 Abuse screen: Denies threats or abuse. Nutritional screening: No deficits noted. ll1 Tuberculosis screening: No symptoms or risk factors identified. Fall Risk IV access (20 points). Total Greenberg Fall Scale indicates No Risk (0-24 pts). Assessment: 15:35 Reassessment: No changes from previously documented assessment. Patient and/or family ll1 updated on plan of care and expected duration. Pain level reassessed. Patient is alert, oriented x 3, equal unlabored respirations, skin warm/dry/pink. 16:35 Reassessment: No changes from previously documented assessment. Patient and/or family ll1 updated on plan of care and expected duration. Pain level reassessed. Patient is alert, oriented x 3, equal unlabored respirations, skin warm/dry/pink. 17:30 GI: Abdomen is flat, Bowel sounds present X 4 quads. ll1 Vital Signs: 14:55 BP 127 / 85; Pulse 97; Resp 18; Temp 97.6(O); Pulse Ox 98% on R/A; Weight 54.43 kg; ld1 Height 5 ft. 10 in. (177.80 cm); Pain 5/10; 16:41 BP 131 / 88; Pulse 74; Resp 17; Pulse Ox 96% on R/A; ll1 17:30 BP 112 / 87; Pulse 88; Resp 16; Pulse Ox 99% on R/A; ll1 14:55 Body Mass Index 17.22 (54.43 kg, 177.80 cm) ld1 ED Course: 14:10 Patient arrived in ED. mr 14:40 Triage completed. ld1 14:40 Arm band placed on right wrist. ld1 14:44 Inserted saline lock: 20 gauge in right antecubital area, using aseptic technique. ld1 Blood collected. 15:07 Bairon Almeida PA is PHCP. jr8 15:07 Jaxson Valderrama MD is Attending Physician. jr8 15:08 Parker, Lynsay, RN is Primary Nurse. 1 15:38 CT Abd/Pelvis - IV Contrast Only In Process Unspecified. EDMS 16:43 Patient has correct armband on for positive identification. Bed in low position. Call ll1 light in reach. Side rails up X 1. Pulse ox on. NIBP on. 17:31 No provider procedures requiring assistance completed. IV discontinued, intact, ll1 bleeding controlled, No redness/swelling at site. Pressure dressing applied. Administered Medications: No medications were administered Outcome: 16:54 Discharge ordered by . mykel 17:32 Discharged to home ambulatory. ll1 17:32 Condition: stable 17:32 Discharge instructions given to patient, Instructed on discharge instructions, follow up and referral plans. Demonstrated understanding of instructions, follow-up care. 17:32 Patient left the ED. 1 Signatures: Dispatcher [employer] EDAZ Vasiliy Orquidea AlmeidaBairon PA PA jr8 Lewis, Lynsay, RN RN 1 Dayami [place] RN RN ld1 Corrections: (The following items were deleted from the chart) 14:41 14:40 PSHx: Unable to Obtain; ld1 ld1 14:43 14:37 Chief complaint: Patient states: I have had off and on epigastric abdominal pain ld1 X 1 month. Pt reports syncopal episodes. Vomited once this morning. ld1 14:47 14:37 Chief complaint: Patient states: I have had off and on epigastric abdominal pain ld1 X 1 month. Pt reports syncopal episodes. Vomited once this morning. Pt reports previous miscarriage in september. ld1 14:47 14:37 BP 121 / 78; Pulse 99bpm; Resp 18bpm; Pulse Ox 99% RA; Temp 98.3F Oral; 92.99 kg; ld1 Height 5 ft. 6 in.; BMI: 33.0; Pain 7/10; ld1 14:47 14:40 Allergies: No Known Allergies; ld1 ld1 14:47 14:40 Home Meds: Unable to obtain; ld1 ld1 14:47 14:40 PMHx: Depressive disorder; ld1 ld1 14:47 14:40 PSHx: None; ld1 ld1 14:48 14:40 Pain: Complains of pain in epigastric area and left upper quadrant Pain does not ld1 radiate. Pain currently is 8 out of 10 on a pain scale. Quality of pain is described as pressure, Pain began gradually, Is continuous, ld1 14:37 Coronavirus screen: At this time, the client does not indicate any symptoms ld1 associated with coronavirus-19. ld1 14:37 Ebola Screen: No symptoms or risks identified at this time. ld1 ld1 :50 14:37 Initial Sepsis Screen: Does the patient meet any 2 criteria? No. Patient's ld1 initial sepsis screen is negative. Does the patient have a suspected source of infection? No. Patient's initial sepsis screen is negative. ld1 14:37 Risk Assessment: Do you want to hurt yourself or someone else? Patient reports no ld1 desire to harm self or others. [facility] 14:37 Onset of symptoms was January 11, 2021 ld1 ld 14:37 Method Of Arrival: Ambulatory 1 [facility] 14:37 Acuity: [facility]J [facility] 16 15:40 Reassessment: No changes from previously documented assessment. Patient and/or ll1 family updated on plan of care and expected duration. Pain level reassessed. Patient is alert, oriented x 3, equal unlabored respirations, skin warm/dry/pink. [facility] 16 16:38 Reassessment: No changes from previously documented assessment. Patient and/or ll1 family updated on plan of care and expected duration. Pain level reassessed. Patient is alert, oriented x 3, equal unlabored respirations, skin warm/dry/pink. 1
--- NOTE | 2021-01-11 16:54 | EDPHYS ---
Physician Documentation [facility] Name: Katarina Vega Age: 75 yrs Sex: Female : 1945 Arrival Date: 01/11/2021 Time: 14:10 Bed 19 Private MD: ED Physician Jaxson Valderrama HPI: 01/11 16:23 This 75 yrs old Female presents to ER via Ambulatory with complaints of Abdominal Pain. jr8 16:23 This is a 75-year-old female that presented to the emergency room with complaints of jr8 upper abdominal discomfort. Patient stated that she has a ventral hernia from previous surgeries aggravates her but feels like it was more diffuse lately. Also stated that she has had black-like stools. Patient currently on Eliquis for arrhythmia.. Historical: - Allergies: 15:00 No Known Allergies; ld1 - PMHx: 15:00 None; ld1 - PSHx: 15:00 Left hip replacement; ld1 - Immunization history:: Adult Immunizations up to date, Client reports receiving the 2nd dose of the Covid vaccine. - Social history:: Smoking status: Patient denies any tobacco usage or history of. Patient/guardian denies using alcohol. ROS: 16:23 Eyes: Negative for injury, pain, redness, and discharge, ENT: Negative for injury, jr8 pain, and discharge, Neck: Negative for injury, pain, and swelling, Cardiovascular: Negative for chest pain, palpitations, and edema, Respiratory: Negative for shortness of breath, cough, wheezing, and pleuritic chest pain, Back: Negative for injury and pain, MS/Extremity: Negative for injury and deformity, Skin: Negative for injury, rash, and discoloration, Neuro: Negative for headache, weakness, numbness, tingling, and seizure. 16:23 Abdomen/GI: Positive for abdominal pain, black/tarry stool, Negative for nausea, vomiting. Exam: 16:23 Constitutional: This is a well developed, well nourished patient who is awake, alert, jr8 and in no acute distress. Cardiovascular: Regular rate and rhythm with a normal S1 and S2. No gallops, murmurs, or rubs. Normal PMI, no JVD. No pulse deficits. Respiratory: Lungs have equal breath sounds bilaterally, clear to auscultation and percussion. No rales, rhonchi or wheezes noted. No increased work of breathing, no retractions or nasal flaring. Back: No spinal tenderness. No costovertebral tenderness. Full range of motion. Skin: Warm, dry with normal turgor. Normal color with no rashes, no lesions, and no evidence of cellulitis. MS/ Extremity: Pulses equal, no cyanosis. Neurovascular intact. Full, normal range of motion. Neuro: Awake and alert, GCS 15, oriented to person, place, time, and situation. Cranial nerves II-XII grossly intact. Motor strength 5/5 in all extremities. Sensory grossly intact. 16:23 Abdomen/GI: Bowel sounds: active, all quadrants, Palpation: soft, in all quadrants, mild abdominal tenderness, in the epigastric area, mass, is not appreciated, rebound tenderness, is not appreciated, voluntary guarding, is not appreciated, involuntary guarding, is not appreciated, no appreciated organomegaly, Indicators: McBurney's point is not tender, Olivas's sign is negative, Rovsing's sign is negative, Liver: tenderness, is not appreciated, Hernia: noted in the epigastric area, incarceration, is not appreciated, tenderness, that is mild. Vital Signs: 14:55 BP 127 / 85; Pulse 97; Resp 18; Temp 97.6(O); Pulse Ox 98% on R/A; Weight 54.43 kg; ld1 Height 5 ft. 10 in. (177.80 cm); Pain 5/10; 16:41 BP 131 / 88; Pulse 74; Resp 17; Pulse Ox 96% on R/A; ll1 17:30 BP 112 / 87; Pulse 88; Resp 16; Pulse Ox 99% on R/A; ll1 14:55 Body Mass Index 17.22 (54.43 kg, 177.80 cm) ld1 MDM: 15:08 Patient medically screened. jr8 16:50 Data reviewed: vital signs, nurses notes, lab test result(s), radiologic studies, CT jr8 scan. Data interpreted: Pulse oximetry: on room air is 96 %. Interpretation: normal. Counseling: I had a detailed discussion with the patient and/or guardian regarding: the historical points, exam findings, and any diagnostic results supporting the discharge/admit diagnosis, lab results, radiology results, the need for outpatient follow up, a animal husbandry professor, a family practitioner, to return to the emergency department if symptoms worsen or persist or if there are any questions or concerns that arise at home. ED course: With patient that there was no acute findings on the CAT scan. Did advise her that she does show signs of right-sided heart failure on the CAT scan. Patient does have COPD which could be consistent with this if she has pulmonary hypertension or right-sided heart failure alone secondary to it. Recommended that she follow-up with her animal husbandry professor. Otherwise epigastric pain that she is experiencing could be from her small epigastric ventral hernia noted. Suggest that she follow-up with family practice for close monitoring as it is not strangulated or incarcerated. If it becomes worse to follow-up with general surgery for possible repairing of the hernia. Otherwise no other acute findings today. Also discussed with her that the black tarry stool that she had experienced which is now resolved could have been secondary to her Eliquis. Needs to keep an eye on that as well and also speak to her animal husbandry professor about this.. 01/11 14:31 Order name: Basic Metabolic Panel ld1 01/11 14:31 Order name: CBC with Diff ld1 01/11 14:31 Order name: Hepatic Function ld1 01/11 14:31 Order name: IV Saline Lock; Complete Time: 14:44 ld1 01/11 15:08 Order name: CT Abd/Pelvis - IV Contrast Only; Complete Time: 15:52 jr8 01/11 15:36 Order name: Basic Metabolic Panel; Complete Time: 16:49 EDMS 01/11 15:36 Order name: Liver (Hepatic) Function; Complete Time: 16:49 EDMS 01/11 15:36 Order name: Lipase; Complete Time: 16:49 EDMS 01/11 15:37 Order name: CBC with Automated Diff; Complete Time: 15:43 EDMS 01/11 17:08 Order name: Vitamin D, 25 (OH), TOTAL EDMS 01/11 14:31 Order name: Labs collected and sent; Complete Time: 14:44 ld1 01/11 15:34 Order name: Labs - recollect needed: chemistry; Complete Time: 16:00 iw Administered Medications: No medications were administered Disposition: 01/12 10:32 Co-signature as Attending Physician, Jaxson Valderrama MD I agree with the assessment and shoshana plan of care. Disposition Summary: 01/11/21 16:54 Discharge Ordered Location: Home jr8 Problem: new jr8 Symptoms: have improved jr8 Condition: Stable jr8 Diagnosis - Ventral hernia without obstruction or gangrene jr8 - Epigastric abdominal tenderness jr8 Followup: jr8 - With: Private Physician - When: 2 - 3 days - Reason: Recheck today's complaints, Continuance of care, Re-evaluation by your physician Discharge Instructions: - Discharge Summary Sheet jr8 - Abdominal Pain, Adult jr8 - Ventral Hernia jr8 Forms: - Medication Reconciliation Form jr8 - Thank You Letter jr8 - Antibiotic Education jr8 - Prescription Opioid Use jr8 Signatures: Dispatcher [employer] EDMS Jaxson Valderrama MD MD cha Williams, Irene, RN RN iw Roszak, Josh, PA PA jr8 Dayami Houston RN RN ld1 Corrections: (The following items were deleted from the chart) 01/11 14:41 14:40 PSHx: Unable to Obtain; ld1 ld1 14:47 14:40 Allergies: No Known Allergies; ld1 ld1 14:47 14:40 Home Meds: Unable to obtain; ld1 ld1 14:47 14:40 PMHx: Depressive disorder; ld1 ld1 14:47 14:40 PSHx: None; ld1 ld1 15:33 14:32 CBC with Automated Diff ordered. EDMS EDMS 15:33 15:07 CBC with Automated Diff reviewed. jr8 EDMS 15:35 14:32 Basic Metabolic Panel ordered. EDMS EDMS 15:35 14:32 Liver (Hepatic) Function ordered. EDMS EDMS 15:35 14:32 LIPASE+C.LAB.BRZ ordered. EDMS EDMS 15:35 15:07 Basic Metabolic Panel reviewed. jr8 EDMS 15:35 15:07 Liver (Hepatic) Function reviewed. jr8 EDMS 15:35 15:07 LIPASE+C.LAB.BRZ reviewed. jr8 EDMS
[2021-01-11 17:37] VITALS: TEMP 97.6
[2021-01-11 17:39] VITALS: BP 112/87; O2SAT 99
== END 2021-01-11 17:32 | disposition home or self-care (01) ==
LOC: ER 14:00
DX: K43.9 Ventral hernia without obstruction or gangrene (principal)
CPT/HCPCS: 85025; 80048; 36415; 82565; 80076; 83690; 82306; 74177; 99284; Q9967